=== PATIENT | male | born 1995 | race Caucasian/White ===

== ENCOUNTER 2019-02-28 20:25 | Emergency (ER) | payer OTHER ==
[~2019-02-28] VITALS: Ht 172.7 cm; Wt 100.0 kg
[2019-02-28] MEDS ORDERED: LORAZEPAM 1MG TABLET PO ONE (23:45)
[2019-03-01 00:04] VITALS: BP 123/78
== END 2019-03-01 00:05 | disposition home or self-care (01) ==
LOC: ER 20:25
DX: F41.9 Anxiety disorder, unspecified (principal); F20.9 Schizophrenia, unspecified; F99 Mental disorder, not otherwise specified
CPT/HCPCS: 99284